=== PATIENT | female | born 1955 | race Caucasian/White ===

== ENCOUNTER → 2018-05-23 02:56 | Outpatient (CLI) | payer BC, SELFPAY ==
[2018-05-23 08:50] LABS: TSH (W/Ref FT4) 1.78 uIU/mL (0.358-3.74)
== END ==
PROVIDERS: PCP Nurse Practitioner Family; Visit Provider Nurse Practitioner Gerontology
DX: E03.9 Hypothyroidism, unspecified (principal)
CPT/HCPCS: 36415; 84443

== ENCOUNTER 2018-09-09 15:59 | Outpatient (REF) | payer BC, SELFPAY | END 2018-09-09 16:19 | LOC: LBN 15:59 | PROVIDERS: PCP Nurse Practitioner Family; Visit Provider Nurse Practitioner Family | DX: N39.0 Urinary tract infection, site not specified (principal) | CPT/HCPCS: 87077; 87086; 87186 ==

== ENCOUNTER 2019-01-17 13:34 | Emergency (ER) | payer OTHER, SELFPAY ==
[2019-01-17 13:38] VITALS: BP 118/57; PULSE 78; RESP 16; TEMP 36.7; O2SAT 97
--- NOTE | 2019-01-17 13:44 | ED.GENADUL_ITS ---
Discharge Plan Disposition Patient Disposition: HOME Condition: Stable Discharge Details Chief Complaint: AnimalBite Clinical Impression: Dog bite of right lower leg Primary Care Provider: Anjelica Bray ED Provider: Gianluca Nguyen Home Meds and New Rx's Prescriptions: New doxycycline hyclate 100 mg tablet 100 mg PO BID Qty: 28 RF: 0 No Action nitrofurantoin monohyd/m-cryst 100 mg capsule 100 mg PO Q12H Qty: 10 RF: 0 aspirin 81 MG tablet,chewable 81 mg PO DAILY RF: 0 levothyroxine 75 MCG tablet 75 mcg PO DAILY Qty: 90 RF: 4 Estring 2 mg (7.5 mcg /24 hour) ring 1 vag ring VG Q3 MONTHS Qty: 1 RF: 4 Discharge Instructions Instructions: Animal Bite (ED) Medical Decision Making Pt states she was riding a bike when a dog bit her right posterior thigh, denies falling or hitting her head. She has several puncture wounds to the right posterior thigh, don't require sutures at this time, has full rom of the leg sodoubt tendon injury and bleeding is controlled, nursing will clean and will prescribe doxy (pcn allergy). She is utd on tetanus and dog is utd on rabies per pt. Differential Diagnosis dog bite, laceration HPI General Mode of arrival: ambulatory . Date/Time Provider Initiated Documentation: 01/17/19 13:35 . Limitations to Documentation: no limitations . Information obtained by: patient . History of Present Illness 63 year old F presents to the emergency department with the chief complaint of dog bite right thigh, described as mild, and is localized to the right and lower extremity. Patient reports no radiation. Patient started experiencing this hour(s) (1) and it has been constant. No relieving factors improve symptom(s), No exacerbating factors reported . Patient notes no other symptoms.. Patient did receive the following treatments prior to arrival, none Related Data Home Medications Medication Instructions Recorded Confirmed aspirin 81 mg PO DAILY tab-cap 02/26/18 01/17/19 levothyroxine 75 mcg PO DAILY #90 tab-cap 05/24/18 01/17/19 estradiol 2 mg (7.5 mcg/24 hour) 1 vag ring VG Q3 MONTHS #1 each 09/06/18 01/17/19 vaginal ring nitrofurantoin 100 mg PO Q12H #10 cap 09/09/18 01/17/19 monohydrate/macrocrystals 100 mg capsule doxycycline hyclate 100 mg PO BID #28 tab 01/17/19 Previous Rx's Medication Instructions Recorded levothyroxine 75 mcg PO DAILY #90 tab-cap 05/24/18 estradiol 2 mg (7.5 mcg/24 hour) 1 vag ring VG Q3 MONTHS #1 each 09/06/18 vaginal ring nitrofurantoin 100 mg PO Q12H #10 cap 09/09/18 monohydrate/macrocrystals 100 mg capsule doxycycline hyclate 100 mg PO BID #28 tab 01/17/19 Allergies Allergy/AdvReac Type Severity Reaction Status Date / Time ampicillin Allergy Unknown Unverified 01/17/19 13:48 Carbapenems Allergy Unknown Unverified 01/17/19 13:48 Cephalosporins Allergy Unknown Unverified 01/17/19 13:48 Penicillins Allergy Unknown Unverified 01/17/19 13:48 sulbactam [Sulbactam] Allergy Unknown Unverified 01/17/19 13:48 BETALACTAMS Allergy Unknown Uncoded 01/17/19 13:48 Review of Systems Review of Systems All systems reviewed & are unremarkable except as noted in HPI and below Constitutional Denies chills, Denies fever(s) and Denies weakness ENT Denies change in voice Cardiovascular Denies chest pain and Denies dyspnea Respiratory Denies cough and Denies dyspnea Gastrointestinal Denies abdominal pain, Denies nausea and Denies vomiting Integumentary/Breasts Denies rash Neurologic Denies weakness PFSH Medical History Hypothyroidism (Chronic) Osteopenia (Chronic) Vitiligo (Chronic) Multinodular goiter (Resolved) H/O total thyroidectomy (Inactive ~08/2004) Malignant neoplasm of left breast (Inactive ~08/1991) Surgical History History of modified radical mastectomy of left breast (Inactive ~08/1991) Tonsillectomy Family History Mother Diabetes Heart disease Father Heart disease Neoplasm Stroke Brother Diabetes Brother No problems noted. Grandfather No problems noted. Grandfather No problems noted. Grandmother No problems noted. Grandmother Stroke Son Neoplasm Social History Do you feel safe in your relationship?: Yes Exam Const General: no acute distress Orientation: alert HENMT Head: normal to inspection Ears: external ears normal General nose exam: external nose normal Mouth: moist mucous membranes Eyes General: appearance normal, both eyes and all related structures Neck Neck: normal visual inspection Resp Effort & Inspection: normal respiratory effort and able to speak in complete sentences Cardio Rate: regular rate Skin General skin exam: no rashes or lesions noted Neuro General: alert and oriented x3 Extrem General: full ROM and normal capillary refill Psych Mental Status: mental status grossly normal
--- NOTE | 2019-01-17 13:55 | NUR.NOTE ---
Animal bite report faxed to [facility] health officer Cornelia Kaufman
== END 2019-01-17 14:05 | disposition home or self-care (01) ==
PROVIDERS: Emergency Provider Emergency Medicine; PCP Nurse Practitioner Family
DX: S81.851A Open bite, right lower leg, initial encounter (principal); W54.0XXA Bitten by dog, initial encounter
CPT/HCPCS: 99283

== ENCOUNTER 2019-03-13 07:14 | Outpatient (CLI) | payer OTHER, SELFPAY ==
[2019-03-13 08:17] LABS: Hemoglobin A1C 5.8 % (4.5-6.2)
[2019-03-13 12:31] LABS: Anion Gap 11.5 mmol/L (3-11); BUN 13 mg/dL (7-18); CO2 26.5 mmol/L (21.0-32.0); CREATININE 0.84 mg/dL (0.55-1.02); Calcium 9.1 mg/dL (8.5-10.1); Chloride 104 mmol/L (98-107); FREE T4 1.26 ng/dL (0.76-1.46); Glucose 96 mg/dL (70-100); Potassium 4.4 mmol/L (3.5-5.1); Sodium 142 mmol/L (136-145); TSH 3.64 uIU/mL (0.358-3.74)
[2019-03-13 12:52] LABS: Calculated LDL 127; Cholesterol 203 mg/dL (50-200); HDL Cholesterol 58 mg/dL (40-60); Triglyceride 94 mg/dL (30-150)
[2019-03-13 13:14] LABS: Vitamin D 25 Total 19.7 ng/ml (30-100)
== END 2019-03-13 07:34 ==
PROVIDERS: PCP Nurse Practitioner Family; Visit Provider Nurse Practitioner Family
DX: E03.9 Hypothyroidism, unspecified (principal); E78.5 Hyperlipidemia, unspecified; M85.80 Other specified disorders of bone density and structure, unspecified site
CPT/HCPCS: 36415; 80048; 80061; 82306; 83721; 83036; 84439; 84443

== ENCOUNTER 2019-08-11 10:19 | Day surgery (SDC) | payer OTHER, SELFPAY ==
--- NOTE | 2019-08-11 07:22 | W.COLOREPORT ---
Date of service: 08/11/19 Time of Service: 11:44 Colonoscopy Report Date of procedure: 08/11/19 Pre-op diagnosis general: Hx of colon polyps Post-op diagnosis procedure note: same (3 polyps and diverticulosis) Procedure: Colonoscopy with polypectomy Surgeon: Anne Marie Felton Anesthesia proc note operative: other (General/ ASA 2/Suyapa Vergara, ZAKIYA) Estimated blood loss (mL): 3 Pathology: other (Transverse polyps x3) Complications: None Disposition: same day Indications: Mrs. Templeton is a pleasant 64 year old female who was seen in the office for a colonosocpy. She had polyps in 2006 and no polyps in 2011. There is no family history of colon cancer. Risks, benefits and complications have been reviewed. Complications include but are not limited to bleeding, pain, perforation, missed small lesion/polyp, sore throat, aspiration and adverse reaction to the medications. Questions were entertained and answered to their satisfaction and they wished to proceed. No guarantees were given or implied. Prep: Miralax/Dulcolax Procedure Start Time: :44 Procedure End Time: 12:10 Retraction Time: 16 minutes Findings: 3 small sessile polyps in the transverse colon Moderate sigmoid diverticulosis Procedure Description: After informed consent was obtained the patient was taken to the procedure room and placed in a left decubitous position. Monitors were applied and a time out was done. The patients name, date of , procedure, allergies to medications and metal in their body was reviewed. The patient was then sedated. Once sedated and comfortable a rectal exam was done. External exam was normal. Internal exam revealed a normal sphincter tone and no palpable masses. The scope was then introduced and retro-flexed. No internal hemorrhoids, polyps or masses were identified on retro-flexion. The scope was then advanced to the cecum without difficulty. The TI and appendiceal orifice were identified. The prep was adequate. The scope was then slowly retracted over 16 minutes back into the rectum. Polyps were removed with cold forceps in the transverse colon. Moderate Diverticulosis was noted in the sigmoid colon. The scope was removed and the patient was woken up and taken back to Same day surgery in stable condition. The patient tolerated the procedure well and there were no immediate complications. Follow up: The patient should follow up in 3-5 years unless they develop changes in bowel habits or other new gastrointestinal complaints.
--- NOTE | 2019-08-11 07:24 | W.PM.DSUDISC ---
Discharge Plan Disposition Patient Disposition: HOME Condition: Good Discharge Details Reason For Visit: SCREENING,HX OF POLYPS Attending Provider: Anne Marie Felton Primary Care Provider: Anjelica Bray Home Meds and New Rx's Prescriptions: Continued Prevnar 13 (PF) 0.5 mL syringe 0.5 ml IM ONCE Qty: 0.5 RF: 0 aspirin 81 MG tablet,chewable 81 mg PO DAILY RF: 0 Estring 2 mg (7.5 mcg /24 hour) ring 1 vag ring VG Q3 MONTHS Qty: 1 RF: 4 levothyroxine 75 mcg tablet 75 mcg PO DAILY Qty: 90 RF: 4 Discontinued polyethylene glycol 3350 17 gram/dose powder 238 g PO ONCE Qty: 238 RF: 0 bisacodyl [Dulcolax (bisacodyl)] 5 mg tablet,delayed release (DR/EC) 5 mg PO ONCE Qty: 4 RF: 0 Discharge Instructions Instructions: Colonoscopy (DC), Diverticulosis (DC), Colorectal Polyps (DC) Additional Instructions: Findings: 3 small polyps diverticulosis Follow up: 3-5 years Please call if you develop: fevers >101.5 Nausea or Vomiting Abdominal pain that is not transient DAY SURGERY UNIT POST ENDOSCOPY INSTRUCTIONS 1. Because there will be medication in your system for the next 24 hours, you may feel a little sleepy. Your coordination will be affected. Therefore: a. Do not drive or operate dangerous equipment for 24 hours. b. Do not drink alcohol beverages for 24 hours (not even beer). c. Plan to go home and rest for the day. 2. Generally there are no restrictions on your activity after a day or so has gone by, but you may feel a bit fatigued for a few days. 3 After you arrive home you may have a light meal and return to a normal diet as you can tolerate it without feeling sick to your stomach. 4. After surgery, you may feel pain or discomfort. This should be only transient, but if it persists please contact your doctor. 5. If there are any questions regarding the findings of your procedure, please feel free to contact your doctor. 6. If you are unable to contact your doctor with a problem, contact the hospital at [phone]. 7. Continue all your regular medications unless directed otherwise. I understand the above instructions and have no questions. Signature of Patient or Responsible Adult Escort Date/Time Name of Responsible Adult Escort Signature of Nurse Date/Time Activity:: Activity as Tolerated Diet:: High Fiber diet Discharge Orders Discharge Orders: Discharge Order (Routine); Ordered 08/11/19 Ordered By: Anne Marie Felton DS: Diagnosis Discharge Diagnosis (1) S/P colonoscopy: Status: Acute (2) Diverticulosis: Status: Acute (3) Colorectal polyps: Status: Acute
[2019-08-11 10:41] VITALS: BP 103/71; PULSE 78; RESP 16; TEMP 36; O2SAT 97
[2019-08-11] MEDS: Lactated Ringers 1,000 ML 80 ML IV (10:53)
--- NOTE | 2019-08-11 12:00 | BOWEL_PTH ---
PATIENT: Ashley Templeton LOC: [facility] U#:[id number] AGE/SX: 64/F ROOM: RE08/11/[address]: Anne Marie Felton MD : 1955 BED: DIS: 08/11/2019 SPEC #: [id number] RECD: 08/11/19 13:12 STATUS: JUAN RESarah #: [id number] ANTHONY: 08/11/19 12:[address]: Anne Marie Felton DEPT: Surgical Specimen RECD BY: Lexie Pitts ENTERED: 08/11/19 13:12 SP TYPE: Bowel OTHR DR: NARESH Donnelly Tissues: 1 - BIOPSY BOWEL Procedures: GROSS AND MICRO LEVEL 4 Comments: [id number]
[2019-08-11 12:45] VITALS: BP 116/59; PULSE 69; RESP 16; TEMP 36.2; O2SAT 96
== END 2019-08-11 13:25 | disposition home or self-care (01) ==
PROVIDERS: PCP Nurse Practitioner Family; Visit Provider Surgery
PROC: 0DJD8ZZ Inspection of Lower Intestinal Tract, Via Natural or Artificial Opening Endoscopic (ICD-10-PCS; CPT 45378; principal; 2019-08-11 10:45)
DX: Z12.11 Encounter for screening for malignant neoplasm of colon (principal); Z86.010 Personal history of colon polyps; D12.3 Benign neoplasm of transverse colon; K57.30 Diverticulosis of large intestine without perforation or abscess without bleeding
CPT/HCPCS: 45380; 88305; J2405

== ENCOUNTER 2019-10-06 17:17 | Outpatient (REF) | payer OTHER, SELFPAY ==
--- NOTE | 2019-10-06 16:30 | PAPFT_PTH ---
PATIENT: Ashley Templeton LOC: [facility] U#:[id number] AGE/SX: 64/F ROOM: RE10/06/[address]: Christina Dalton MD : 1955 BED: DIS: 10/06/2019 SPEC #: [id number] RECD: 10/06/19 18:42 STATUS: JUAN RESarah #: [id number] ANTHONY: 10/06/19 16:[address]: Christina Ferrari DEPT: [facility] Cytology RECD BY: Lexie Pitts ENTERED: 10/06/19 18:44 SP TYPE: PAPFT OTHR DR: Anjelica Bray, CORRECTION OFFICER Tissues: 1 - CX/ENDOCX FOR PAP SMEARS Procedures: PAP THIN PREP/UVM Screening HPV DNA PROBE Comments: [id number] (CHLAMYDIA/GC)
[2019-10-07 15:45] LABS: Chlamydia Result Negative (Negative); GC Result Negative (Negative)
== END 2019-10-06 17:37 ==
LOC: LBN 17:17
PROVIDERS: PCP Nurse Practitioner Family; Visit Provider Internal Medicine
DX: R31.9 Hematuria, unspecified (principal); M54.9 Dorsalgia, unspecified; N89.8 Other specified noninflammatory disorders of vagina; Z11.3 Encounter for screening for infections with a predominantly sexual mode of transmission; Z12.4 Encounter for screening for malignant neoplasm of cervix
CPT/HCPCS: 87491; 87591; 88142; 87086; 87480; 87510; 87624; 87660

== ENCOUNTER 2019-10-09 02:28 | Outpatient (CLI) | payer OTHER, SELFPAY ==
--- NOTE | 2019-10-09 15:27 | DI.US_ITS ---
EXAM: US PELVIS TRANSVAGINAL CLINICAL HISTORY: uterine mass N85.2 HYPERTROPHY OF UTERUS TECHNIQUE: Ultrasound performed using standard protocol. COMPARISON: No exams were available for comparison FINDINGS: Pelvic ultrasound was performed transabdominally and transvaginally. Please see the accompanying lamar a sheet for measurements of the pelvic structures. There is incidental 2 cm in diameter simple left lower pole renal cyst. Otherwise the kidneys are unremarkable. There is a small quantity of free fluid in the endometrial cavity in the fundus. There is a cervical fluid collection measuring about 19 x 15 x 10 millimeters, this could represent lower uterine segmen t/cervical endometrial collection. Alternatively this may represent a large nabothian cyst. The ova rahul are unremarkable in appearance. Symmetrical vascular flow to the ovary is noted. No free fluid identified in the cul-de-sac. IMPRESSION: Fluid in endometrial cavity, abnormal in this age group. Correlation with hysteroscopy and/or endomet rial biopsy recommended.
== END 2019-10-09 02:48 ==
PROVIDERS: PCP Nurse Practitioner Family; Visit Provider Internal Medicine
DX: N85.2 Hypertrophy of uterus (principal); N28.1 Cyst of kidney, acquired; N85.8 Other specified noninflammatory disorders of uterus
CPT/HCPCS: 76830; 76856

== ENCOUNTER 2019-10-21 16:48 | Outpatient (REF) | payer OTHER, SELFPAY ==
--- NOTE | 2019-10-21 16:00 | ENDOMET_PTH ---
PATIENT: Ashley Templeton LOC: [facility] U#:[id number] AGE/SX: 64/F ROOM: RE10/21/[address]: Ivis Soliman : 1955 BED: DIS: 10/21/2019 SPEC #: [id number] RECD: 10/21/19 17:20 STATUS: JUAN RESarah #: [id number] ANTHONY: 10/21/19 16:[address]: Ivis Soliman DEPT: Surgical Specimen RECD BY: Lexie Pitts ENTERED: 10/21/19 17:20 SP TYPE: Endomet OTHR DR: NARESH Donnelly Tissues: 1 - ENDOMETRIUM BX/BHARATH Procedures: GROSS AND MICRO LEVEL 4 Comments: [id number]
== END 2019-10-21 17:08 ==
LOC: LBN 16:48
PROVIDERS: PCP Nurse Practitioner Family; Visit Provider Obstetrics & Gynecology Gynecology
DX: N85.8 Other specified noninflammatory disorders of uterus (principal); N84.0 Polyp of corpus uteri; R93.89 Abnormal findings on diagnostic imaging of other specified body structures
CPT/HCPCS: 88305

== ENCOUNTER 2020-03-05 18:17 | Outpatient (REF) | payer OTHER, SELFPAY ==
[2020-03-05 20:11] LABS: Bilirubin Negative (Negative); Blood Small (Negative); Clarity Clear (Clear); Glucose Negative (Negative); Ketones Negative (Negative); Leukocyte Esterase Small (Negative); Nitrite Positive (Negative); Urobilinogen 0.2 EU/dL (Up TO 0.2); pH 5.5 (5-8)
[2020-03-05 20:12] LABS: C & S Indicated? C&S Done As Ordered
[2020-03-05 20:21] LABS: Bacteria Many HPF (Negative); Casts Negative LPF (Negative); Crystals Negative HPF (Negative); Epithelial Cells Negative HPF (Negative); Mucus Negative (Negative); WBC >50 HPF (0-5)
== END 2020-03-05 18:37 ==
LOC: LBN 18:17
PROVIDERS: PCP Nurse Practitioner Family; Visit Provider Nurse Practitioner Family
DX: R35.0 Frequency of micturition (principal)
CPT/HCPCS: 87077; 81003; 81015; 87086; 87186

== ENCOUNTER 2020-03-11 02:24 | Outpatient (CLI) | payer OTHER, SELFPAY ==
[2020-03-11 08:03] LABS: Hemoglobin A1C 5.8 % (3.8-5.6)
[2020-03-11 08:47] LABS: Calculated LDL 138 mg/dL (<100); Cholesterol 208 mg/dL (<200); HDL Cholesterol 60 mg/dL (40-60); TSH 0.83 uIU/mL (0.36-3.74); Triglyceride 54 mg/dL (<150)
[2020-03-11 09:15] LABS: FREE T4 1.19 ng/dL (0.76-1.46)
== END 2020-03-11 02:44 ==
PROVIDERS: PCP Nurse Practitioner Family; Visit Provider Nurse Practitioner Family
DX: R73.03 Prediabetes (principal); E03.9 Hypothyroidism, unspecified
CPT/HCPCS: 36415; 80061; 83036; 84439; 84443

== ENCOUNTER 2020-12-03 12:45 | Outpatient (CLI) | payer OTHER, SELFPAY ==
[2020-12-04 16:56] LABS: COVID-19 RT-PCR UVMMC Result Negative (Negative)
== END 2020-12-03 12:46 | disposition home or self-care (01) ==
LOC: LBO 12:45
PROVIDERS: PCP Nurse Practitioner Family; Visit Provider Nurse Practitioner Family
DX: Z20.822 Contact with and (suspected) exposure to COVID-19 (principal)
CPT/HCPCS: U0003

== ENCOUNTER 2020-12-08 03:16 | Outpatient (CLI) | payer OTHER, SELFPAY ==
[2020-12-09 13:18] LABS: COVID-19 RT-PCR UVMMC Result Negative (Negative)
== END 2020-12-08 03:17 | disposition home or self-care (01) ==
LOC: LBO 03:16
PROVIDERS: PCP Nurse Practitioner Family; Visit Provider Nurse Practitioner Family
DX: Z20.822 Contact with and (suspected) exposure to COVID-19 (principal)
CPT/HCPCS: U0003

== ENCOUNTER 2021-01-11 03:11 | Outpatient (CLI) | payer OTHER, SELFPAY ==
[2021-01-12 12:23] LABS: COVID-19 RT-PCR UVMMC Result Negative (Negative)
== END 2021-01-11 03:12 | disposition home or self-care (01) ==
LOC: LBO 03:11
PROVIDERS: PCP Nurse Practitioner Family; Visit Provider Nurse Practitioner Family
DX: Z20.822 Contact with and (suspected) exposure to COVID-19 (principal)
CPT/HCPCS: U0003

== ENCOUNTER 2021-03-10 23:58 | Outpatient (REF) | payer OTHER, SELFPAY ==
[2021-03-10 21:14] LABS: Bilirubin Negative (Negative); Blood Moderate (Negative); Clarity Cloudy (Clear); Glucose Negative (Negative); Ketones Trace mg/dL (Negative); Leukocyte Esterase Small (Negative); Nitrite Negative (Negative); Specific Gravity >= 1.030 (1.005-1.025); Urobilinogen 0.2 EU/dL (Up TO 0.2); pH 5.5 (5-8)
[2021-03-10 21:25] LABS: C & S Indicated? C&S Done As Ordered; Crystals Many Amorphous HPF (Negative)
== END 2021-03-10 23:59 | disposition home or self-care (01) ==
LOC: LBN 23:58
PROVIDERS: PCP Nurse Practitioner Family; Visit Provider Nurse Practitioner Family
DX: R32 Unspecified urinary incontinence (principal); N39.0 Urinary tract infection, site not specified
CPT/HCPCS: 81003; 81015; 87086

== ENCOUNTER 2021-03-14 04:15 | Outpatient (CLI) | payer OTHER, SELFPAY ==
[2021-03-14 15:29] LABS: Anion Gap 7.4 mmol/L (3-11); BUN 11 mg/dL (7-18); CO2 29.6 mmol/L (21.0-32.0); CREATININE 0.9 mg/dL (0.55-1.02); Calcium 9.3 mg/dL (8.5-10.1); Chloride 105 mmol/L (98-107); FREE T4 1.14 ng/dL (0.76-1.46); Glucose 103 mg/dL (74-106); Potassium 4.3 mmol/L (3.5-5.1); Sodium 142 mmol/L (136-145); TSH 1.48 uIU/mL (0.36-3.74)
[2021-03-17 01:13] LABS: Vitamin D 25 Total 21.5 ng/mL (30-100)
== END 2021-03-14 04:16 | disposition home or self-care (01) ==
LOC: LBO 04:16
PROVIDERS: PCP Nurse Practitioner Family; Visit Provider Nurse Practitioner Family
DX: Z00.00 Encounter for general adult medical examination without abnormal findings (principal); E03.9 Hypothyroidism, unspecified; M85.9 Disorder of bone density and structure, unspecified
CPT/HCPCS: 36415; 80048; 82306; 84439; 84443

== ENCOUNTER 2021-10-02 15:09 | Emergency (ER) | payer BC, SELFPAY ==
[2021-10-02 15:22] VITALS: BP 120/68; PULSE 83; RESP 12; TEMP 36.8; O2SAT 99
--- NOTE | 2021-10-02 16:00 | DI.RAD_ITS ---
Exam(s) XR HAND RT COMPLETE XR WRIST RT COMPLETE EXAM: XR HAND RT COMPLETE CLINICAL HISTORY: s/p fall, r/o fx. TECHNIQUE: 2D digital imaging was performed. COMPARISON: CR,XR XR WRIST RT COMPLETE from 10/02/2021 CR,XR XR WRIST RT COMPLETE from 10/02/2021 FINDINGS: BONES: An acute fracture is present at the proximal 1st metacarpal. There is some impaction and angu lation. No visible extension to the articular surface. No additional fractures. Fixation plate dis rodney radius.. No bony destructive lesion is seen. JOINTS: No dislocation present. SOFT TISSUE: Normal. IMPRESSION: Fracture at the base of the 1st metacarpal. DATA REPOSITORY: RADIATION DOSE DELIVERED:
--- NOTE | 2021-10-02 16:42 | DI.VRAD_ITS ---
PROCEDURE INFORMATION: Exam: XR Right Wrist Exam date and time: 10/02/2021 4:13 PM Age: 66 years old Clinical indication: Other: Fall, R/O FX TECHNIQUE: Imaging protocol: XR Right wrist. Views: 3 or more views. COMPARISON: No relevant images were readily available for comparison purposes. FINDINGS: Bones/joints: Fixation hardware distal radius which appears intact without evidence of acute complication. Osteopenia. There is a mildly displaced/angulated fracture of the 1st metacarpal base. Soft tissues: Soft tissue swelling about site of bony injury. IMPRESSION: Acute fracture 1st metacarpal base. Dictated and Authenticated by: Luther Infante MD. Ordering:ANT Tay MD
--- NOTE | 2021-10-02 16:43 | DI.VRAD_ITS ---
PROCEDURE INFORMATION: Exam: XR Right Hand Exam date and time: 10/02/2021 4:13 PM Age: 66 years old Clinical indication: Other: Fall, R/O FX TECHNIQUE: Imaging protocol: XR Right hand. Views: 3 or more views. COMPARISON: CR XR WRIST RT COMPLETE 10/02/2021 4:20 PM FINDINGS: Bones/joints: Acute mildly displaced/angulated fracture of the 1st metacarpal base. Fixation hardware seen at the distal radius. Soft tissues: Soft tissue swelling about site of bony injury. IMPRESSION: Acute fracture 1st metacarpal base. Dictated and Authenticated by: Luther Infante MD. Ordering:ANT Tay MD
--- NOTE | 2021-10-02 16:55 | W.ED.GENAD ---
Discharge Plan Disposition Patient Disposition: HOME Condition: Stable Discharge Details Clinical Impression: Fracture of first metacarpal bone of right hand Primary Care Provider: Anjelica Bray ED Provider: Maggi Manuel Home Meds and New Rx's Prescriptions: Continued levothyroxine 75 mcg tablet 75 mcg PO DAILY Qty: 90 RF: 4 Discharge Instructions Instructions: Hand Fracture (ED) Additional Instructions: Rest, ice, and elevate the affected area as much as possible. Alternate tylenol and motrin as needed and directed for pain. Call the orthopedics office tomorrow morning to schedule a follow-up appointment for reevaluation. Return immediately to the emergency department if you develop any worsening or new concerning symptoms. Referrals: Roman Betancourt MD [ [facility] STAFF PHYSICIAN] - Discharge Data Discharge Date/Time-TO BE ENTERED AT DEPARTURE: 10/02/21 17:22 Discharge Physician: Maggi Manuel Medical Decision Making 66yo female presents with right thumb pain after trip and fall onto outstretched hand 4 days ago. She has ecchymosis and edema at the base of the right thumb extending to the dorsum of the right hand. No significant pain in her right wrist. No deformity noted. Neurovascularly intact. Patient referred for x-rays which noted a fracture at the base of the first metacarpal. X-rays reviewed with Dr. Betancourt who recommends ulnar gutter splint with web roll in between first and second webspace for thumb abduction. Splint placed and patient neurovascularly intact. Patient placed on orthopedic follow-up list. She declined medication for pain for home. Advised on importance of RICE. Usual and customary return precautions given prior to discharge. Medical Records Medical records reviewed: Yes I reviewed the patient's medical records. Imaging Data Radiologic Study: Radiologist's impression: XR Right Hand Exam date and time: 10/02/2021 4:13 PM Age: 66 years old Clinical indication: Other: Fall, R/O FX TECHNIQUE: Imaging protocol: XR Right hand. Views: 3 or more views. COMPARISON: CR XR WRIST RT COMPLETE 10/02/2021 4:20 PM FINDINGS: Bones/joints: Acute mildly displaced/angulated fracture of the 1st metacarpal base. Fixation hardware seen at the distal radius. Soft tissues: Soft tissue swelling about site of bony injury. IMPRESSION: Acute fracture 1st metacarpal base. XR Right Wrist Exam date and time: 10/02/2021 4:13 PM Age: 66 years old Clinical indication: Other: Fall, R/O FX TECHNIQUE: Imaging protocol: XR Right wrist. Views: 3 or more views. COMPARISON: No relevant images were readily available for comparison purposes. FINDINGS: Bones/joints: Fixation hardware distal radius which appears intact without evidence of acute complication. Osteopenia. There is a mildly displaced/angulated fracture of the 1st metacarpal base. Soft tissues: Soft tissue swelling about site of bony injury. IMPRESSION: Acute fracture 1st metacarpal base. Lab Data Lab results reviewed: Yes I reviewed the patient's lab results. HPI General Mode of arrival: ambulatory. Date/Time Provider Initiated Documentation: 10/02/21 15:34. Limitations to Documentation: no limitations. Information obtained by: patient. HPI Narrative: Patient is a 66-year-old female who presents with right thumb pain after a fall 4 days ago. 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 She states she also hit her head and her right ribs but denies any pain in these areas. She states the pain is mainly in the base of her right thumb and states the swelling and bruising has become worse. She does have a history of right wrist ORIF in 2006 status post fracture. Related Data Home Medications Medication Instructions Recorded Confirmed levothyroxine 75 mcg tablet 75 mcg PO DAILY #90 tab-cap 03/16/21 10/02/21 Previous Rx's Medication Instructions Recorded levothyroxine 75 mcg tablet 75 mcg PO DAILY #90 tab-cap 03/16/21 Allergies Allergy/AdvReac Type Severity Reaction Status Date / Time ampicillin Allergy Unknown Verified 10/02/21 15:25 Carbapenems Allergy Unknown Verified 10/02/21 15:25 Cephalosporins Allergy Unknown Verified 10/02/21 15:25 Penicillins Allergy Unknown Verified 10/02/21 15:25 sulbactam [Sulbactam] Allergy Unknown Verified 10/02/21 15:25 BETALACTAMS Allergy Unknown Uncoded 10/02/21 15:25 General Stated Complaint: Orthopedic ALBERTO: 4 Review of Systems All systems reviewed & are unremarkable except as noted in HPI and below Musculoskeletal Comments: R thumb pain PFSH All Active Problems (Updated 10/02/21 @ 17:16 by Maggi Manuel DO) Fracture of first metacarpal bone of right hand (Acute) Hypothyroidism (Chronic) Prediabetes (Chronic) Hyperlipidemia (Chronic) Osteopenia (Chronic) Dexa scan 10/2019 Vitamin D deficiency (Chronic) Tubular adenoma of colon (Chronic) Vaginal dryness, menopausal (Chronic) Rx with Estring. Vitiligo (Chronic) Sigmoid diverticulosis (Chronic) Medical History Hyperlipidemia Hypothyroidism Malignant neoplasm of left breast (~08/1991) Infiltrating ductal carcinoma s/p modified radical mastectomy and tamoxifen x 5yrs Multinodular goiter Osteopenia Dexa scan 10/2019 Postmenopausal bleeding 10/2019. Pelvic u/s ES: 4mm. EMBx: mucus. nl atrophic endometrium. Prediabetes Sigmoid diverticulosis Tubular adenoma of colon Vaginal dryness, menopausal Rx with Estring. Vitamin D deficiency Vitiligo Surgical History H/O total thyroidectomy (~08/2004) for multinodular goiter and Isatu's thyroiditis History of modified radical mastectomy of left breast (~08/1991) S/P colonoscopy (08/11/19) S/P ORIF (open reduction internal fixation) fracture (11/07/05) Of comminuted fracture of right distal radius and ulnar styloid S/P tonsillectomy and adenoidectomy Family History Mother , at 89 Heart disease Type 2 diabetes mellitus Father , at 92 Heart disease Stroke Skin cancer Brother Hypothyroidism Brother No problems noted. Maternal Grandfather No problems noted. Maternal Grandmother No problems noted. Paternal Grandfather No problems noted. Paternal Grandmother Stroke Social History Smoking/Tobacco Use Status: Never Second Hand Exposure: Yes Smoking risk assessment performed?: Yes Alcohol Intake: current Alcohol Intake frequency: a few times a month Alcohol type: hard liquor Drug use: Never Substance use type: does not use Counseling given: No Caregiver/Support person: No Household members: spouse Housing: house Communication Needs: None Do you need help understanding health information?: Rarely Pets and animals: Yes Pets and animals: cat(s) and dog(s) Sexually active: Yes Do you think of yourself as: straight/heterosexual Current gender identity: female What is your relationship status?: How often do you talk on the phone with friends or family?: three or more times per week How often do you get together with friends or relatives?: three or more times per week How often do you attend religion or hindu services?: 4 or more times per year Do you belong to any clubs or organized social groups?: no Panel score (0-1 are the most socially isolated patients): 3 What type of physical activity do you participate in: walking and bicycling Duration: 60-90 minutes/day Frequency: 5-6 times per week Tami/Episcopal: Yazidi Seatbelt use: always Helmet use: Yes Helmet use: always Drive intox or ride w/intox auto parts delivery driver: No Do you feel safe at home: Yes Do you feel safe in your relationship?: Yes Female Reproductive History Menstrual Menopause type: natural History History 0 Para Hx # Term Pregnancies Multiple births Hx # Pregnancies Ectopic pregnancies AB induced Hx Number of Living Children AB spontaneous Exam Const General: cooperative and no acute distress HENMT Head: normal to inspection Mouth: oral mucosae normal Eyes General: appearance normal, both eyes and all related structures Neck Neck: normal visual inspection Resp Effort & Inspection: normal respiratory effort and able to speak in complete sentences Cardio Rate: regular rate Skin General skin exam: no rashes or lesions noted Neuro General: patient alert, patient awake and patient oriented x3 Motor: muscle tone normal throughout Extrem Hand/finger images: 1. Tenderness, moderate edema and ecchymosis noted to the dorsal medial hand and extending onto the base of the right thumb extending down to wrist. Able to abduct/adduct thumb but with some pain. Other: Tenderness to palpation overlying the base of the right thumb. There is no significant tenderness or limitation of range of motion of the wrist. Right radial and ulnar pulses intact. No deformity. Psych Appearance: grossly normal Affect: normal affect Course Vital Signs Vital signs: Vital Signs Temperature 98.2 F 10/02/21 15: Pulse 83 10/02/21 15:22 Respiratory Rate 12 10/02/21 15:22 Blood Pressure 120/68 10/02/21 15:22 Pulse Oximetry 99 10/02/21 15:22 Temperature 98.2 F 10/02/21 15:22 Temperature Source Temporal Artery Scan 10/02/21 15:22 Pulse 83 10/02/21 15:22 Respiratory Rate 12 10/02/21 15:22 Respiratory Effort Non-Labored 10/02/21 15:24 Blood Pressure 120/68 10/02/21 15:22 Blood Pressure Position Sitting 10/02/21 15:22 Pulse Oximetry 99 10/02/21 15:22 Oxygen Delivery Method Room Air 10/02/21 15:22 Oxygen Flow Rate 0 10/02/21 15:22 Pain Level 4 10/02/21 15:26 Procedures Orthopedic Splinting/Casting Injury #1: Side: right Upper Extremity Injury Location: wrist and hand Upper Extremity Immobilizer: ulnar gutter
== END 2021-10-02 17:22 | disposition home or self-care (01) ==
PROVIDERS: Emergency Provider Physician Assistant; PCP Nurse Practitioner Family
DX: S62.291A Other fracture of first metacarpal bone, right hand, initial encounter for closed fracture (principal); W01.0XXA Fall on same level from slipping, tripping and stumbling without subsequent striking against object, initial encounter
CPT/HCPCS: 29125; 99284; 73110; 73130; 99283

== ENCOUNTER 2021-10-10 11:03 | Outpatient (CLI) | payer BC, SELFPAY ==
--- NOTE | 2021-10-10 08:58 | DI.RAD_ITS ---
Exam(s) XR WRIST RT COMPLETE EXAM: XR WRIST RT COMPLETE INDICATION: R thumb fx. COMPARISON: CR,XR XR WRIST RT COMPLETE from 10/02/2021 TECHNIQUE: 2D digital imaging was performed. FINDINGS: There has been no change in the alignment of the fracture at the base of the 1st metacarpal. No new abnormalities are seen. DATA REPOSITORY: RADIATION DOSE DELIVERED:
== END 2021-10-10 11:04 | disposition home or self-care (01) ==
LOC: DIORS 11:03
PROVIDERS: PCP Nurse Practitioner Family; Referring Provider Nurse Practitioner Family; Visit Provider Physician Assistant
DX: S62.234D Other nondisplaced fracture of base of first metacarpal bone, right hand, subsequent encounter for fracture with routine healing (principal); W19.XXXD Unspecified fall, subsequent encounter
CPT/HCPCS: 73110

== ENCOUNTER 2021-11-07 15:44 | Outpatient (CLI) | payer BC, SELFPAY ==
--- NOTE | 2021-11-07 15:00 | DI.RAD_ITS ---
Exam(s) XR WRIST RT COMPLETE EXAM: XR WRIST RT COMPLETE CLINICAL HISTORY: f/u fracture. TECHNIQUE: 2D digital imaging was performed. COMPARISON: CR XR WRIST RT COMPLETE from 10/10/2021 FINDINGS: Stable appearance of distal radius volar fixation. Healed fracture site hardware. Again noted is fracture site the proximal aspect thumb. Fracture line still visible at this level. IMPRESSION: DATA REPOSITORY: RADIATION DOSE DELIVERED:
== END 2021-11-07 15:45 | disposition home or self-care (01) ==
LOC: DIORS 15:44
PROVIDERS: PCP Nurse Practitioner Family; Referring Provider Nurse Practitioner Family; Visit Provider Student in an Organized Health Care Education/Training Program
DX: S62.234D Other nondisplaced fracture of base of first metacarpal bone, right hand, subsequent encounter for fracture with routine healing (principal); W01.0XXD Fall on same level from slipping, tripping and stumbling without subsequent striking against object, subsequent encounter
CPT/HCPCS: 73110

== ENCOUNTER 2021-12-05 15:16 | Outpatient (CLI) | payer BC, SELFPAY ==
--- NOTE | 2021-12-05 15:00 | DI.RAD_ITS ---
Exam(s) XR THUMB RT EXAM: XR THUMB RT INDICATION: f/u R thumb MC fracture. COMPARISON: CR,XR XR HAND RT COMPLETE from 10/02/2021 TECHNIQUE: 2D digital imaging was performed. Three views FINDINGS: There has been no change in the alignment of the fracture at the proximal 1st metacarpal. There is i ncreased callus formation around the fracture site. No new abnormalities. DATA REPOSITORY: RADIATION DOSE DELIVERED:
== END 2021-12-05 15:17 | disposition home or self-care (01) ==
LOC: DIORS 15:16
PROVIDERS: PCP Nurse Practitioner Family; Visit Provider Student in an Organized Health Care Education/Training Program
DX: S62.291D Other fracture of first metacarpal bone, right hand, subsequent encounter for fracture with routine healing (principal); W01.0XXD Fall on same level from slipping, tripping and stumbling without subsequent striking against object, subsequent encounter
CPT/HCPCS: 73140

== ENCOUNTER 2022-01-16 13:23 | Outpatient (CLI) | payer BC, SELFPAY ==
--- NOTE | 2022-01-16 10:00 | DI.RAD_ITS ---
Exam(s) XR THUMB RT EXAM: XR THUMB RT CLINICAL HISTORY: right thumb fracture. TECHNIQUE: 2D digital imaging was performed. Three views. COMPARISON: CR XR THUMB RT from 12/05/2021 FINDINGS: BONES: No change in alignment of fracture at the base of the 1st metacarpal. Continued healing.. No bony destructive lesion is seen. JOINTS: No dislocation present. Mild degenerative changes. SOFT TISSUE: Normal. IMPRESSION: Continued healing of fracture of 1st metacarpal. DATA REPOSITORY: RADIATION DOSE DELIVERED:
== END 2022-01-16 13:24 | disposition home or self-care (01) ==
LOC: DIORS 13:23
PROVIDERS: PCP Nurse Practitioner Family; Referring Provider Nurse Practitioner Family; Visit Provider Physician Assistant
DX: S62.291D Other fracture of first metacarpal bone, right hand, subsequent encounter for fracture with routine healing (principal); W01.0XXD Fall on same level from slipping, tripping and stumbling without subsequent striking against object, subsequent encounter
CPT/HCPCS: 73140

== ENCOUNTER 2022-02-16 18:15 | Outpatient (REF) | payer BC, SELFPAY ==
[2022-02-16 21:05] LABS: Bilirubin Negative (Negative); Blood Trace-intact (Negative); Clarity Cloudy (Clear); Glucose Negative (Negative); Ketones Negative (Negative); Leukocyte Esterase Negative (Negative); Nitrite Negative (Negative); Specific Gravity >= 1.030 (1.005-1.025); Urobilinogen 0.2 EU/dL (Up TO 0.2)
[2022-02-16 21:19] LABS: Bacteria Negative HPF (Negative); Epithelial Cells Negative HPF (Negative); RBC Negative HPF (0-2); WBC Negative HPF (0-5)
[2022-02-16 21:20] LABS: C & S Indicated? No; Casts Negative LPF (Negative); Crystals Many Amorphous HPF (Negative); Mucus Negative (Negative)
== END 2022-02-16 18:16 | disposition home or self-care (01) ==
LOC: LBN 18:15
PROVIDERS: PCP Nurse Practitioner Family; Visit Provider Nurse Practitioner Family
DX: R30.0 Dysuria (principal); R39.89 Other symptoms and signs involving the genitourinary system
CPT/HCPCS: 81003; 81015; 87480; 87510; 87660

== ENCOUNTER 2022-06-27 03:10 | Outpatient (CLI) | payer BC, SELFPAY ==
[2022-06-27 18:43] LABS: TSH (W/Ref FT4) 0.48 uIU/mL (0.36-3.74)
== END 2022-06-27 03:11 | disposition home or self-care (01) ==
LOC: LBO 03:10
PROVIDERS: PCP Nurse Practitioner Family; Visit Provider Family Medicine
DX: E03.9 Hypothyroidism, unspecified (principal)
CPT/HCPCS: 36415; 84443

== ENCOUNTER 2023-03-14 08:51 | Outpatient (CLI) | payer MEDICARE, SELFPAY ==
[2023-03-14 09:35] LABS: Bilirubin Negative (Negative); Blood Trace-lysed (Negative); Clarity Clear (Clear); Glucose Negative (Negative); Ketones Negative (Negative); Leukocyte Esterase Trace (Negative); Nitrite Negative (Negative); Urobilinogen 0.2 mg/dL (Up to 0.2); pH 5.5 (5-8)
[2023-03-14 09:40] LABS: Hemoglobin A1C 5.6 % (<5.7)
[2023-03-14 09:52] LABS: Anion Gap 5.4 mmol/L (3-11); BUN 12 mg/dL (7-18); CO2 30.6 mmol/L (21.0-32.0); CREATININE 0.9 mg/dL (0.55-1.02); Calculated LDL 120 mg/dL (<100); Chloride 105 mmol/L (98-107); Cholesterol 198 mg/dL (<200); Estimated GFR 69.64 (mL/min/1.73m2); Glucose 105 mg/dL (74-106); HDL Cholesterol 69 mg/dL (40-60); Potassium 4.1 mmol/L (3.5-5.1); Sodium 141 mmol/L (136-145); TSH (W/Ref FT4) 2.23 uIU/mL (0.36-3.74); Triglyceride 49 mg/dL (<150)
[2023-03-14 09:52] LABS: Bacteria Few HPF (Negative); C & S Indicated? Yes; Casts 0-2 Hyaline LPF (Negative); Crystals Negative HPF (Negative); Epithelial Cells Few HPF (Negative); Mucus Moderate (Negative)
[2023-03-14 10:42] LABS: Vitamin D 25 Total 23.6 ng/mL (30-100)
== END 2023-03-14 08:52 | disposition home or self-care (01) ==
LOC: LBO 08:52
PROVIDERS: PCP Nurse Practitioner Family; Visit Provider Nurse Practitioner Family
DX: E03.9 Hypothyroidism, unspecified (principal); R73.03 Prediabetes; E55.9 Vitamin D deficiency, unspecified; M54.9 Dorsalgia, unspecified
CPT/HCPCS: 36415; 80048; 80061; 82306; 81003; 81015; 83036; 84443; 87086

== ENCOUNTER → 2023-05-08 02:02 | Outpatient (CLI) | payer MEDICARE, SELFPAY ==
--- NOTE | 2023-05-08 07:45 | DI.DEXA_ITS ---
Exam(s) XR DEXA BONE DENSITY W/WO SVETLANA EXAM: XR DEXA BONE DENSITY W/WO SVETLANA CLINICAL HISTORY: Osteopenia,screening for osteoporosis in postmenopausal woman,z78.0 TECHNIQUE: COMPARISON: Comparison is made with prior examinations. FINDINGS: Lateral Spine Image: Unremarkable. No compression deformities identified. Left hip: Total T-Score: -1.9. This is unchanged compared to the prior examination. Total Z-Score: -0.5 T- and Z-scores: Findings are consistent with osteopenia. There is osteoporosis in the femoral neck with a T-score of -2.5. Lumbar Spine: Total T-Score: -1.1. This compares to -1.4 on the prior examination. Total Z-Score: 0.9 T- and Z-scores: Findings are consistent with osteopenia. IMPRESSION: Osteoporosis in the femoral neck.
== END ==
PROVIDERS: PCP Nurse Practitioner Family; Visit Provider Nurse Practitioner Family
DX: Z78.0 Asymptomatic menopausal state (principal); Z13.820 Encounter for screening for osteoporosis; M81.0 Age-related osteoporosis without current pathological fracture
CPT/HCPCS: 77080

== ENCOUNTER 2023-10-12 15:44 | Outpatient (REF) | payer MEDICARE, SELFPAY | END 2023-10-12 15:45 | disposition home or self-care (01) | LOC: LBN 15:44 | PROVIDERS: PCP Nurse Practitioner Family; Visit Provider Nurse Practitioner Family | DX: N89.8 Other specified noninflammatory disorders of vagina (principal) | CPT/HCPCS: 87480; 87510; 87660 ==

== ENCOUNTER 2024-01-28 15:45 | Outpatient (REF) | payer MEDICARE, SELFPAY ==
[2024-01-28 21:15] LABS: Bilirubin Negative (Negative); Blood Small (Negative); Clarity Clear (Clear); Glucose Negative (Negative); Ketones Negative (Negative); Leukocyte Esterase Negative (Negative); Nitrite Negative (Negative); Specific Gravity 1.025 (1.005-1.025); Urobilinogen 0.2 mg/dL (Up to 0.2); pH 5.5 (5-8)
[2024-01-28 21:26] LABS: Bacteria Negative HPF (Negative); C & S Indicated? No; Casts Negative LPF (Negative); Crystals Negative HPF (Negative); Epithelial Cells Rare HPF (Negative); Mucus Negative (Negative); Other Cells Rare Transitional (Negative); WBC Negative HPF (0-5)
== END 2024-01-28 15:46 | disposition home or self-care (01) ==
LOC: LBN 15:45
PROVIDERS: PCP Nurse Practitioner Family; Visit Provider Nurse Practitioner Family
DX: R30.0 Dysuria (principal)
CPT/HCPCS: 81003; 81015

== ENCOUNTER 2024-03-20 13:24 | Outpatient (CLI) | payer MEDICARE, SELFPAY ==
[2024-03-20 11:55] LABS: Anion Gap 5.7 mmol/L (3-11); BUN 12 mg/dL (7-18); CO2 30.3 mmol/L (21.0-32.0); CREATININE 0.9 mg/dL (0.55-1.02); Calcium 9.1 mg/dL (8.5-10.1); Chloride 105 mmol/L (98-107); Glucose 112 mg/dL (74-106); Potassium 4.2 mmol/L (3.5-5.1); Sodium 141 mmol/L (136-145); TSH (W/Ref FT4) 1.77 uIU/mL (0.36-3.74)
[2024-03-21 09:18] LABS: Hepatitis C Ab w Rflx HCV PCR Negative (Negative)
== END 2024-03-20 13:25 | disposition home or self-care (01) ==
LOC: LBO 13:25
PROVIDERS: PCP Nurse Practitioner Family; Visit Provider Nurse Practitioner Family
DX: E03.9 Hypothyroidism, unspecified (principal); Z00.00 Encounter for general adult medical examination without abnormal findings; R35.0 Frequency of micturition; M85.80 Other specified disorders of bone density and structure, unspecified site; B96.89 Other specified bacterial agents as the cause of diseases classified elsewhere
CPT/HCPCS: 36415; 80048; 82306; 86803; 84443; 87086

== ENCOUNTER → 2024-08-14 15:26 | Outpatient (BNVA) | payer MEDICARE, SELFPAY | PROVIDERS: PCP Nurse Practitioner Family; Referring Provider Nurse Practitioner Family; Visit Provider Physical Therapy Assistant | DX: Z12.11 Encounter for screening for malignant neoplasm of colon (principal); Z86.0100 Personal history of colon polyps, unspecified; R73.03 Prediabetes ==

== ENCOUNTER 2024-08-27 00:41 | Outpatient (CLI) | payer MEDICARE, SELFPAY ==
--- NOTE | 2024-08-27 07:15 | DI.MAMMO_ITS ---
Exam(s) MG MAMMO DIAGNOSTIC UNI US BREAST RT LIMITED EXAM: MG MAMMO DIAGNOSTIC UNI and U/S breast RT limited CLINICAL HISTORY: Right breast pain, N64.4, mastodynia. TECHNIQUE: Craniocaudal and mediolateral oblique Full Field Digital Mammography views of the right b reast with Computer Aided Diagnosis followed by Tomosynthesis and right breast ultrasound. COMPARISON: Comparison is made with prior examinations. FINDINGS: Mammography/Tomosynthesis: The patient is status post left mastectomy. Masses/Architectural Distortion: None seen. Microcalcifictions: No suspicious pleomorphic-type are seen. Skin Thickening/Nipple Retraction: None. Limited right breast US: Echotexture: Normal appearance of the glandular tissue. Shadowing: No suspicious foci. Cyst: None. Solid lesions: None seen. Ductal dilation: None. IMPRESSION: 1. No evidence of malignancy is noted. 2. Unless there is more urgent need, follow-up screening mammography is recommended, as per [employer] guidelines. 3. The findings were discussed with the patient on the date of the examination. BI-RADS Category 1 - Negative Breast Density - Category B - Scattered areas of fibroglandular density Breast density Category C or D implies that the patient has dense breast tissue. Dense breast tissue can make it harder to find cancer on a mammogram. Dense breast tissue is also associated with an incr eased risk of breast cancer. This information about the result of the mammogram report was provided to the patient to raise their awareness. Use this report when you speak with the patient about their risks for breast cancer, which includes their family history. At that time, you may recommend additional screening tests (Ultrasoun d or MRI) as these tests may add significant information. A negative radiographic report should not delay biopsy if a dominant or clinically suspicious mass is present. Up to ten percent of cancers are not identified on mammography. A negative report may reinforce clinical impression. Adenosis and dense breasts may obscure an underlying neoplasm. False positive reports average 6 to 10%. Patient will receive a letter notifying them of these results.
== END 2024-08-27 01:01 ==
LOC: DI 00:41
PROVIDERS: PCP Nurse Practitioner Family; Visit Provider Nurse Practitioner Family
DX: N64.4 Mastodynia (principal); Z12.31 Encounter for screening mammogram for malignant neoplasm of breast
CPT/HCPCS: 76642; 77061; 77065; G0279

== ENCOUNTER 2024-09-19 06:16 | Day surgery (SDC) | payer MEDICARE, SELFPAY ==
--- NOTE | 2024-09-19 00:07 | W.PM.HP.N ---
Date of service: 09/19/24 Time of Service: 07:44 Assessment and Plan Assessment and plan (1) Hyperlipidemia: Status: Chronic (2) Prediabetes: Status: Chronic (3) Hypothyroidism: Status: Chronic (4) Osteopenia: Status: Chronic (5) History of left breast cancer: Status: Chronic (6) Multinodular goiter: (7) Tubular adenoma of colon: Assessment and plan: Plan: Colonoscopy w/ general & natural airway. Informed consent is obtained for the procedural (explained in simple layman's terms that?the pt and/or family could understand) explaining risks vs benefits and alternatives to the procedure and consequences if we do not do the procedure and need/rational for the procedure. Risks include but are not limited to: bleeding, infection, perforation of colon.? This would necessitate emergency surgery to repair the damage w/ possible ostomy; and other associated complications w/ the required surgery. ? Also complications of anesthesia including aspiration, PR/CVA/, inability to complete the procedure. I discussed with the?patient would they could expect during the procedure, post procedure and recovery time and risks.? The patient understands that they need to have a ride home after the procedure.? Generally Colonoscopy does not require antibiotics prophylaxis, This document was created with voice activated software and may contain errors. 20 mins spent in direct pt care and 15 in non face to face time (8) Malignant neoplasm of left breast: History of Present Illness Narrative: Patient is here today for colonoscopy for adenomatous polyps..??? They completed a bowel prep with just a clear yellow residual effluent.? They not having any chest pain or shortness of breath, currently.? They are not experiencing any fever or chills.? They deny any productive cough or upper respiratory tract infection signs or symptoms.? They are not having abdominal pain, or nausea and vomiting.? They have not had any changes in medications, past medical history or past surgical history since previously being seen in the office. They have not had any accidents or have been in the ER since the clinic pre-operative evaluation. ??I reviewed the procedure with the patient today, including risks and benefits of the procedure, and what they could expect at home for recovery.? All questions are answered to the patient?s satisfaction today, and they are stable to proceed with the proposed procedure. he patient is here for Colonoscopy pre-op. Her last screening was in 2019, which was remarkable for tubular adenoma x 3. She denies having any family history of colon cancer. She has not had any bowel habit changes. -Discussed colonoscopy bowel prep as well as the procedure. Discussed possible complications of the procedure to include bleeding, pain, perforation, missed small lesion/polyp, sore throat, aspiration and adverse reaction to the medications. Questions were answered to patient?s satisfaction. No guarantees were implied or given. Sent in an order for ondansetron to be used PRN for any nausea and vomiting. Also discussed that she can prolong the duration of drinking the miralax if necessary by starting it earlier in the day. Anesthesia: general (without airway) Previous surgical intolerances: None Previous surgical complications: None Pulmonary risk factors: None PFT's: None Planned procedure: Yes Sleep apnea risks: No Can climb one flight of stairs (12-13 steps) in less than 30 seconds without stopping and without symptoms: Yes The surgery proposed for this patient is: Low risk Active cardiac conditions: None ECHO: None Stress Test: None Active risk factors: None ASA (acetylsalicylic acid):No Beta blockers: No Anti-coagulation: N/A Medications to be held: All vitamins and supplements x 5 days prior. 69 y/o female with history of breast cancer, prediabetes, HLD, hypothyroidism and vitiligo presents for colonoscopy screening pre-op. Her last screening was in 2019, which was remarkable for tubular adenoma x 3. She states she experienced a lot of nausea and vomiting while completing her bowel prep last time. She denies a family history of colon cancer. She denies any changes in bowel habits including bloody or black tarry stools, abdominal pain, diarrhea or constipation. Of note she was given an ointment to use PRN from her PCP for anal itching. Which has helped. She denies constitutional symptoms. She denies chest pain, palpitations, dyspnea or dyspnea with exertion. She denies prior history or family history of adverse reactions or complications with anesthesia. The patient denies any history of stroke, PR, seizures, bleeding or clotting disorders. She has metal implanted in her right wrist. Review of Systems All systems reviewed & are unremarkable except as noted in HPI and below PFSH All Active Problems Osteoporosis (Chronic) History of left breast cancer (Chronic ~08/1991) Infiltrating ductal carcinoma s/p modified radical mastectomy and tamoxifen x 5yrs Hypothyroidism (Chronic) Prediabetes (Chronic) Hyperlipidemia (Chronic) Osteopenia (Chronic) Dexa scan 10/2019 Vitamin D deficiency (Chronic) Genitourinary syndrome of menopause (Chronic) Mixed urge and stress incontinence (Chronic) Sigmoid diverticulosis (Chronic) Vitiligo (Chronic) Medical History Tubular adenoma of colon On 2019 colonoscopy Postmenopausal bleeding 10/2019. Pelvic u/s ES: 4mm. EMBx: mucus. nl atrophic endometrium. Multinodular goiter Malignant neoplasm of left breast (~08/1991) Infiltrating ductal carcinoma s/p modified radical mastectomy and tamoxifen x 5yrs Surgical History S/P tonsillectomy and adenoidectomy S/P colonoscopy (08/11/19) S/P ORIF (open reduction internal fixation) fracture (11/07/05) Of comminuted fracture of right distal radius and ulnar styloid H/O total thyroidectomy (~08/2004) for multinodular goiter and Isatu's thyroiditis History of modified radical mastectomy of left breast (~08/1991) Family History Mother , at 89 Heart disease Type 2 diabetes mellitus Father , at 92 Heart disease Stroke Skin cancer Brother Hypothyroidism Brother No problems noted. Maternal Grandfather No problems noted. Maternal Grandmother No problems noted. Paternal Grandfather No problems noted. Paternal Grandmother Stroke Social History Smoking/Tobacco Use Status: Never Second Hand Exposure: Yes Smoking risk assessment performed?: Yes Alcohol Intake: current Alcohol Intake frequency: a few times a month Alcohol type: hard liquor Drug use: Never Substance use type: does not use Counseling given: No Details: alcohol: unknown Caregiver/Support person: No Household members: spouse Housing: house Communication Needs: None Do you need help understanding health information?: Never Pets and animals: Yes Pets and animals: cat(s) and dog(s) Sexually active: Yes Do you think of yourself as: straight/heterosexual Current gender identity: female What is your relationship status?: How often do you talk on the phone with friends or family?: three or more times per week How often do you get together with friends or relatives?: three or more times per week How often do you attend restorationist or orthodox services?: 4 or more times per year Do you belong to any clubs or organized social groups?: no Panel score (0-1 are the most socially isolated patients): 3 What type of physical activity do you participate in: walking and bicycling Duration: 60-90 minutes/day Frequency: 5-6 times per week Tami/Druze: Hinduism Special tami needs: No Seatbelt use: always Helmet use: Yes Helmet use: always Drive intox or ride w/intox 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 Do you feel safe at home: Yes Do you feel safe in your relationship?: Yes Additional Social history: [facility] Female Reproductive History Menstrual Menopause type: natural History History 0 Para Hx # Term Pregnancies Multiple births Hx # Pregnancies Ectopic pregnancies AB induced Hx Number of Living Children AB spontaneous Meds Allergies and Home Medications Allergies Allergy/AdvReac Type Severity Reaction Status Date / Time ampicillin Allergy Unknown Skin Rash Verified 09/19/24 06:37 Carbapenems Allergy Unknown Other (See Verified 09/19/24 06:37 Comment) Cephalosporins Allergy Unknown Other (See Verified 09/19/24 06:37 Comment) Penicillins Allergy Unknown Skin Rash Verified 09/19/24 06:37 sulbactam (Sulbactam) Allergy Unknown Other (See Verified 09/19/24 06:37 Comment) BETALACTAMS Allergy Unknown Skin Rash Uncoded 09/19/24 06:37 Home Medications ?Medication ?Instructions ?Recorded ?Confirmed ?Type levothyroxine 75 mcg tablet 75 mcg PO DAILY #90 tabs 11/22/23 09/19/24 Rx cholecalciferol (vitamin D3) 50 2,000 unit PO DAILY #90 tabs 03/24/24 09/19/24 Rx mcg (2,000 unit) tablet alendronate 70 mg tablet (Fosamax) 70 mg PO QWEEK #15 tabs 05/21/24 09/19/24 Rx bisacodyl 5 mg tablet,delayed 5 mg PO ONCE #4 tabs 08/14/24 09/19/24 Rx release (Dulcolax (bisacodyl)) polyethylene glycol 3350 17 17 g PO ONCE #238 grams 08/14/24 09/19/24 Rx gram/dose oral powder estradiol 0.01% (0.1 mg/gram) vaginal 09/19/24 History vaginal cream ondansetron 8 mg disintegrating mg 09/19/24 History tablet Exam Narrative Exam Narrative: PHYSICAL EXAM GENERAL APPEARANCE: Alert, healthy appearance, oriented, x 3,? in no acute distress HYDRATION: Well hydrated HEAD, EYES, EARS, NECK, THROAT: Head is normocephalic, pupils equal, round, reactive to light and accommodation, ocular movement intact, sclera clear and no jaundice. ?Dentition intact. LUNGS: normal respiration/normal chest excursion. ?Clear to auscultation bilaterally. ?No wheeze. ?HEART: Regular rate and rhythm. no murmurs BDOMEN: soft and non-tender to palpation.? Normal bowel sounds.? Time Spent Time spent with Patient: <40 minutes Time was spent: preparing to see the patient(eg.review tests), obtaining and/or reviewing separately otained hiistory, ordering medications,tests, procedures, referring, communicating with other health acute care surgeon, indepentently interpreting results, counseling the patient, care coordination and other
[2024-09-19 06:34] VITALS: BP 109/66; PULSE 80; RESP 16; TEMP 36.6; O2SAT 98
[2024-09-19] MEDS: Normal Saline 500 ML 30 ML IV (06:55)
--- NOTE | 2024-09-19 07:19 | W.ANESPRE ---
General Info Date of Service Date Performed: 09/19/24 Height: 5 ft 6 in Weight: 64.6 kg Body Mass Index (BMI): 22.9 Surgical Procedure: Operation Date: 09/19/24 07:35 Proposed Procedure Side Surgeon p Colonoscopy Charlotte Lopez, Actual Procedure Side Surgeon p Colonoscopy Not Applicable Charlotte Lopez, Meds Allergies and Home Medications Allergies Allergy/AdvReac Type Severity Reaction Status Date / Time ampicillin Allergy Unknown Skin Rash Verified 09/19/24 06:37 Carbapenems Allergy Unknown Other (See Verified 09/19/24 06:37 Comment) Cephalosporins Allergy Unknown Other (See Verified 09/19/24 06:37 Comment) Penicillins Allergy Unknown Skin Rash Verified 09/19/24 06:37 sulbactam (Sulbactam) Allergy Unknown Other (See Verified 09/19/24 06:37 Comment) BETALACTAMS Allergy Unknown Skin Rash Uncoded 09/19/24 06:37 Home Medication ?Medication ?Instructions ?Recorded levothyroxine 75 mcg tablet 75 mcg PO DAILY #90 tabs 11/22/23 cholecalciferol (vitamin D3) 50 2,000 unit PO DAILY #90 tabs 03/24/24 mcg (2,000 unit) tablet alendronate 70 mg tablet (Fosamax) 70 mg PO QWEEK #15 tabs 05/21/24 bisacodyl 5 mg tablet,delayed 5 mg PO ONCE #4 tabs 08/14/24 release (Dulcolax (bisacodyl)) polyethylene glycol 3350 17 17 g PO ONCE #238 grams 08/14/24 gram/dose oral powder estradiol 0.01% (0.1 mg/gram) vaginal 09/19/24 vaginal cream ondansetron 8 mg disintegrating mg 09/19/24 tablet Current Visit Medications: Current Medications Generic Name Dose Route Start Last Admin Trade Name Freq PRN Reason Stop Dose Admin Hyoscyamine Sulfate 0.125 mg 09/19/24 11:56 Hyoscyamine 0.125 Mg Sl/Oral/Chew SL 10/19/24 11:55 DIRECTED PRN Sodium Chloride 500 mls @ 30 mls/hr 09/19/24 06:25 09/19/24 06:55 Saline 500ml Bag IV 10/19/24 06:24 30 mls/hr INFUSION UMESH Administration IV Miscellaneous Supplies 1 each 09/19/24 06:00 Iv Access IV 10/18/24 23:59 DIRECTED UMESH Ondansetron HCl 4 mg 09/19/24 11:56 Ondansetron 4 Mg/2 Ml Vial IVP 10/19/24 11:55 Q4H PRN PRN Nausea / Vomiting Sodium Chloride 0 ml 09/19/24 06:00 Normal Saline Flush 10 Ml Syr IV 10/18/24 23:59 PRN PRN Sodium Chloride 0 ml 09/19/24 06:00 Normal Saline 10 Ml Vial IJ 10/18/24 23:59 DIRECTED PRN Sterile Water 0 ml 09/19/24 06:00 Water,Injection,Sterile 10 Ml Vial IJ 10/18/24 23:59 DIRECTED PRN PFSH Active Problems Active Problems: Problem Status Onset Code Osteoporosis Chronic M81.0 History of left breast cancer Chronic ~08/1991 Z85.3 Hypothyroidism Chronic E03.9 Prediabetes Chronic R73.03 Hyperlipidemia Chronic E78.5 Osteopenia Chronic M85.80 Vitamin D deficiency Chronic E55.9 Genitourinary syndrome of menopause Chronic N95.8 Mixed urge and stress incontinence Chronic N39.46 Sigmoid diverticulosis Chronic K57.30 Vitiligo Chronic L80 Medical History Medical History Tubular adenoma of colon On 2018 colonoscopy Postmenopausal bleeding 10/2019. Pelvic u/s ES: 4mm. EMBx: mucus. nl atrophic endometrium. Multinodular goiter Malignant neoplasm of left breast (~08/1991) Infiltrating ductal carcinoma s/p modified radical mastectomy and tamoxifen x 5yrs Medical History Comments:: pt. reports being emotional after anesthesia Surgical History Surgical History S/P tonsillectomy and adenoidectomy S/P colonoscopy (08/11/19) S/P ORIF (open reduction internal fixation) fracture (11/07/05) Of comminuted fracture of right distal radius and ulnar styloid H/O total thyroidectomy (~08/2004) for multinodular goiter and Isatu's thyroiditis History of modified radical mastectomy of left breast (~08/1991) Tobacco Smoking/Tobacco Use Status: Never Passive smoking exposure: No Second hand exposure: Yes Alcohol Alcohol Intake: current Alcohol intake frequency: a few times a month Alcohol type: hard liquor Substance Use Substance use: Never Substance use type: does not use Details: alcohol: unknown Prental History History 0 Para Hx # Term Pregnancies Multiple births Hx # Pregnancies Ectopic pregnancies AB induced Hx Number of Living Children AB spontaneous Vital Signs and Lab Results Vital Signs Most Recent Vital Signs in EMR: Most Recent Vital Signs Temp Pulse Resp BP Pulse Ox 36.6 C 80 16 109/66 98 09/19/24 06:34 09/19/24 06:34 09/19/24 06:34 09/19/24 06:34 09/19/24 06:34 Lab Results Blood Type / Crossmatch: No Data to Display Complete Blood Count: No Data to Display Complete Metabolic Panel: No Data to Display Liver Function Panel: No Data to Display Coagulation Panel: No Data to Display Cardiac Panel: No Data to Display Arterial Blood Gas: No Data to Display Venous Blood Gas: No Data to Display Pancreas Panel: No Data to Display Thyroid Panel: No Data to Display Infectious Disease: No Data to Display Blood Cultures: No Data to Display Toxicology Panel: No Data to Display Anesthesia Assessment and Plan Anesthesia History Personal History: No History of Anesthesia Complications Family History: No Family History of Anesthesia Complications Exercise Tolerance Exercise Tolerance: Metabolic Equivalents>4 Pertinent Negatives Pertinent Negatives: No Symptoms of GERD, No Major Cardiovascular Symptoms or Complaints and No Major Pulmonary Symptoms or Complaints Cardiac & Pulmonary Exam Cardiac Exam: Normal S1/S2 Heart Sounds Pulmonary Exam: Clear Bilateral Breath Sounds Implantable Cardiac Device Does patient have a Pacemaker or an ICD?: No Airway Exam Known Difficult Airway: No Mallampati Class: 3 Mouth Opening: Normal (> 3cm) Thyromental Distance: Greater than 3 cm Neck Range of Motion: Full ROM Neck Circumference: Normal Teeth Condition: Normal Dentition ASA Classification ASA Score: ASA 2 Emergency Case?: No NPO Status NPO Status: NPO Clears >2 hours, Solids >8 hours Anesthesia Plan Resuscitation Status: Full Code Anesthesia Technique: General Anesthesia Airway Planned: Natural Airway Monitors Used: Standard Monitors
[2024-09-19 07:29] VITALS: BMI 22.9
[2024-09-19 08:30] VITALS: BP 104/57; PULSE 94; RESP 16; TEMP 36.3; O2SAT 99
--- NOTE | 2024-09-19 08:52 | PDOC.DSDIS_ITS ---
Date of service: 09/19/24 Discharge Plan Disposition Patient Disposition: Home Condition: Good Discharge Details Reason For Visit: Colon scope Attending Provider: Charlotte Lopez Primary Care Provider: Anjelica Bray Home Meds and New Rx's Prescriptions: Continued alendronate [Fosamax] 70 mg tablet 70 mg PO QWEEK Qty: 15 3RF levothyroxine 75 mcg tablet 75 mcg PO DAILY Qty: 90 3RF cholecalciferol (vitamin D3) 50 mcg (2,000 unit) tablet 2,000 unit PO DAILY Qty: 90 3RF ondansetron 8 mg tablet,disintegrating Patient Comments: DISSOLVE ONE TABLET ON THE TONGUE EVERY 8 HOURS NEEDED FOR NAUSEA AND VOMITING FOR 1 DAY estradiol 0.01 % (0.1 mg/gram) cream VAGINAL Patient Comments: APPLY 1 GRAM VAGINALLY ONCE DAILY FOR TWO WEEKS, THEN APPLY ONE GRAM VAGINALLY 2 TIMES PER WEEK. Discontinued bisacodyl [Dulcolax (bisacodyl)] 5 mg tablet,delayed release (DR/EC) 5 mg PO ONCE Qty: 4 0RF Rx Instructions: Take per colonoscopy instructions provided by ordering providers office polyethylene glycol 3350 17 gram/dose powder 17 g PO ONCE Qty: 238 0RF Rx Instructions: Take per colonoscopy instructions provided by ordering providers office Discharge Instructions Additional Instructions: [facility] Colonoscopy Post- Op Instructions Instructions for Everyone who is given Anesth esia: For your safety, please do the following for the next twenty-four (24) hours: *Do Not operate a motor vehicle (car, truck, motorcycle, etc.) *Do Not drink alcoholic beverages or use any recreational drugs for the first 24 hours or while taking pain medications. The medications in your body may have a reaction that can be dangerous. *Do Not make any important decisions or sign any important papers. Findings: Diverticula No polyps Follow up: No further repeat screening colonoscopy is advised. Of course, you should continue to have a yearly physical exam including a rectal exam. If you should ever notice any pain or difficulty having a bowel movement, blood in the stool, unexplained weight loss, or change in your bowel habits, please contact your health provider 1. No lifting over 20 pounds or strenuous activity for the first 24 hours after your procedure. After 24 hours there are no restrictions on your activity but you may feel fatigued for a few days. 2. After you arrive home you may have a light meal and return to your normal diet as you can tolerate it without feeling sick to your stomach. 3. You may have a bloated, gaseous feeling in your belly (abdomen) after a colonoscopy. Passing gas and belching will help. Walking or lying down on your left side with your knees flexed may relieve the discomfort. Call the office at [phone] (Office) or [phone] (Hospital) right away if you notice any of the following: a.Vomiting of blood or ?coffee ground stools?. b.Rectal bleeding 1Tbsp, blood clots or continuous bleeding. c.Severe belly (abdominal) pain. d.A hard distended belly (abdomen) and an inability to pass gas. 4. Please don?t expect to have a normal BM (bowel movement) for 2-3 days after your procedure. 5. If there are questions regarding the findings of your procedure, please contact your doctor 6. If you are unable to contact your doctor with a problem, contact the hospital at [phone]. 7. Continue all your regular medications unless directed otherwise. I understand the above instructions and have no questions. Signature of Patient or Adult Escort Name of Responsible Adult Escort Signature of Nurse Date/Time Stand Alone Forms: Lisa Hill ([facility]) Activity:: See above Diet:: See above Discharge Orders Discharge Orders: Discharge Order (Routine); Ordered 09/19/24 Ordered By: Charlotte Lopez DS: Diagnosis Discharge Diagnosis (1) Hyperlipidemia: Status: Chronic (2) Prediabetes: Status: Chronic (3) Hypothyroidism: Status: Chronic (4) Osteopenia: Status: Chronic (5) History of left breast cancer: Status: Chronic (6) Multinodular goiter: (7) Tubular adenoma of colon: (8) Malignant neoplasm of left breast: (9) Diverticula of colon: Status: Acute Asessment and Plan: The patient is seen and examined after their colonoscopy.? The patient has been able to pass gas.? They are not having abdominal pain.? They have been able to tolerate liquids and a snack.? They do not have any nausea or vomiting.? They are not having any chest pain or shortness of breath.??? They are not having any rectal bleeding. Their vital signs have been stable-see nursing notes. We discussed findings during their colonoscopy, and any biopsies that were done/polyps that were removed. The patient will be sent a letter with any biopsy results, and when to repeat the colonoscopy.-see discharge instructions. Patient was given explicit instructions to follow-up regarding colonoscopy-refer to discharge instructions.? We reviewed resumption of medications. Patient verbalized understanding and discharged in stable and satisfactory condition- See nursing notes.
[2024-09-19 08:57] VITALS: BP 101/72; PULSE 78; RESP 16; TEMP 36; O2SAT 96
--- NOTE | 2024-09-19 09:38 | W.ANESPOSTOP ---
Postoperative Evaluation Date, Time and Location Date Performed: 09/19/24 Time Performed: 08:53 Patient Location: Day Surgery Unit Vital Signs Most Recent Imported Vital Signs: Most Recent Vital Signs Temp Pulse Resp BP Pulse Ox 36 C L 78 16 101/72 96 09/19/24 08:57 09/19/24 08:57 09/19/24 08:57 09/19/24 08:57 09/19/24 08:57 Pain Score Most Recent Pain Score: Most Recent Pain Score Pain Level 0 09/19/24 08:57 Assessment Mental Status: Awake (Alert & Oriented to Patient Baseline) Airway and Respiratory Function: Patent airway with normal (patient baseline) respiratory exam Cardiovascular Function: Hemodynamically Stable Hydration Status: Adequately Hydrated Nausea & Vomiting: No Nausea or Vomiting Pain: Pt. Denies Any Pain Peripheral Nerve Block: Patient did not receive a nerve block
--- NOTE | 2024-09-19 09:52 | W.COLOREPORT ---
Date of service: 09/19/24 Time of Service: 09:53 Colonoscopy Report Date of procedure: 09/19/24 Pre-op diagnosis general: Adenomatous polyps Post-op diagnosis procedure note: other (Diverticula) Surgeon: Charlotte Lopez Anesthesia Type: General:No Airway Estimated blood loss (mL): 0 Pathology: none sent Complications: None Disposition: same day Prep: Miralax/Dulcolax Retraction Time: 11 Procedure Description: After informed consent was obtained, explaining risks of the procedure, including but not limits to: bleeding, infections, complications of anesthesia, perforations (which may require antibiotics and /or surgery and stay in the hospital), and abdominal pain/cramping. The patient was taken to the procedure room and placed in a left decubitous position. Monitors were applied and a time out was done. The patients name, date of , procedure, allergies to medications and metal in their body was reviewed. The patient was then sedated. Once sedated and comfortable a rectal exam was done. External exam was normal. Internal exam revealed a normal sphincter tone and no palpable masses. The previously lubricated Olympus scope was then introduced (see RN notes for scope number) and retrofelexed. No internal hemorrhoids were identified. The scope was then advanced to the cecum without difficulty. The TI and appendiceal orifice were identified. The scope was then slowly retracted over 11 minutes back into the rectum. Polyps: No. diverticula: pt had few small mouthed diverticula in the sigmoid colon. There were no signs of active bleeding or infection. The mucosa is pink and healthy w/ a normal vascular pattern. The scope was removed, and the patient was woken up and taken back to Same day surgery in stable condition. The patient tolerated the procedure well and there were no immediate complications. Follow up: The patient does not require any routine screening colonoscopies, unless they develop changes in bowel habits or other new gastrointestinal complaints. [place] Bowel Prep [place] Bowel Prep Right Colon: 3 Left Colon: 3 Transverse Colon: 3 Total Score: 9
== END 2024-09-19 09:25 | disposition home or self-care (01) ==
PROVIDERS: PCP Nurse Practitioner Family; Visit Provider Surgery
PROC: 0DJD8ZZ Inspection of Lower Intestinal Tract, Via Natural or Artificial Opening Endoscopic (ICD-10-PCS; CPT 45378; principal; 2024-09-19 07:30)
DX: Z12.11 Encounter for screening for malignant neoplasm of colon (principal); R73.03 Prediabetes; K57.30 Diverticulosis of large intestine without perforation or abscess without bleeding
CPT/HCPCS: G0105; J1596; J2003; J2371; J2405; J2704

== ENCOUNTER 2025-01-02 09:06 | Outpatient (CLI) | payer MEDICARE, SELFPAY ==
[2025-01-02 09:13] LABS: Abs Immature Grans 0.01 10^3/uL (0.0-0.06); Absolute Basophil Count 0.05 10^3/uL (0.0-0.2); Absolute Eosinophil Count 0.11 10^3/uL (0.0-0.7); Absolute Lymphocyte Count 1.52 10^3/uL (1.2-3.4); Absolute Monocyte Count 0.79 10^3/uL (0.1-0.8); Absolute Neutrophil Count 2.29 10^3/uL (1.2-6.7); Eosinophils % 2.3 %; HCT 41.9 % (36.0-46.0); HGB 13.6 g/dL (11.2-15.7); Immature Grans % 0.2 %; Lymphocytes % 31.9 %; MCH 29.4 pg (27.0-33.0); MCHC 32.5 % (32.0-36.0); MCV 91 fL (80-95); Monocytes % 16.6 %; Platelet Count 308 10^3/uL (130-400); RBC 4.63 10^6/uL (3.93-5.22); RDW 12.4 % (11.7-14.6); RDW-SD 41.2 fL; WBC 4.77 10^3/uL (4.4-10.8)
== END 2025-01-02 09:07 | disposition home or self-care (01) ==
LOC: LBO 09:06
PROVIDERS: Nurse Practitioner Family; PCP Nurse Practitioner Family; Visit Provider Nurse Practitioner Family
DX: R05.3 Chronic cough (principal)
CPT/HCPCS: 36415; 85025

== ENCOUNTER 2025-01-02 09:08 | Outpatient (CLI) | payer MEDICARE, SELFPAY ==
--- NOTE | 2025-01-02 09:20 | DI.RAD_ITS ---
Exam(s) XR CHEST 2V PA LATERAL EXAM: XR CHEST 2V PA LATERAL CLINICAL HISTORY: chronic cough for 5 months R05.3. TECHNIQUE: 2D digital imaging was performed. COMPARISON: CR LEFT RIBS TO INCLUDE CXR from 10/29/2011 FINDINGS: 2 views: Heart size is normal. The mediastinum is not widened. COPD findings but no infiltrates nor pleural effusions. No pulmonary edema. Slight loss of height of T5 vertebral body noted, probably not acute. This appears to been slightly present on x-rays of October 2011. IMPRESSION: No acute pulmonary findings.COPD. DATA REPOSITORY: RADIATION DOSE DELIVERED:
== END 2025-01-02 09:28 ==
PROVIDERS: PCP Nurse Practitioner Family; Visit Provider Nurse Practitioner Family
DX: R05.3 Chronic cough (principal)
CPT/HCPCS: 71046

== ENCOUNTER 2025-01-29 04:06 | Outpatient (CLI) | payer MEDICARE, SELFPAY ==
[2025-01-29] MEDS: Inhaler, Assist Device 1 EACH MC (17:16)
[2025-01-29] MEDS: Levalbuterol HFA 15 GM INH 4 PUFF IH (17:17)
--- NOTE | 2025-02-02 21:22 | W.PFT ---
Date of service: 01/29/25 Time of Service: 15:38 Pulmonary Function Test Result Indications: Cough Interpretation Spirometry: No airflow limitation. No significant bronchodilator response. Lung Volumes: Air trapping present Diffusion Capacity: Normal diffusion Airway Pressure: Increased airways resistance Impression Increased airways resistance and air trapping. Clinical Correlation therefore is recommended.
== END 2025-01-29 04:07 | disposition home or self-care (01) ==
LOC: RT 04:07
PROVIDERS: PCP Nurse Practitioner Family; Visit Provider Student in an Organized Health Care Education/Training Program
DX: R05.3 Chronic cough (principal)
CPT/HCPCS: 94060; 94726; 94729

== ENCOUNTER 2025-05-06 02:24 | Outpatient (CLI) | payer MEDICARE, SELFPAY ==
[2025-05-06 08:30] LABS: Anion Gap 6.5 mmol/L (3-11); BUN 16 mg/dL (7-18); CO2 29.5 mmol/L (21.0-32.0); Calcium 9.1 mg/dL (8.5-10.1); Chloride 104 mmol/L (98-107); Estimated GFR 68.77 (mL/min/1.73m2); Glucose 116 mg/dL (74-106); Potassium 3.9 mmol/L (3.5-5.1); Sodium 140 mmol/L (136-145); TSH (W/Ref FT4) 1.44 uIU/mL (0.36-3.74); Vitamin D 25 Total 28 ng/mL (30-100)
[2025-05-06 22:17] LABS: HIV-1/2 Ag & Ab Screen Negative (Negative)
[2025-05-06 22:29] LABS: HBs Antibody, Quant 3.6 mIU/mL (See Note); Hepatitis B Surface Antigen Negative (Negative)
== END 2025-05-06 02:25 | disposition home or self-care (01) ==
LOC: LBO 02:25
PROVIDERS: PCP Nurse Practitioner Family; Visit Provider Nurse Practitioner Family
DX: Z11.59 Encounter for screening for other viral diseases (principal); E03.9 Hypothyroidism, unspecified; E55.9 Vitamin D deficiency, unspecified; M81.0 Age-related osteoporosis without current pathological fracture; Z11.4 Encounter for screening for human immunodeficiency virus [HIV]
CPT/HCPCS: 36415; 80048; 82306; 86704; 86706; 87340; 87389; 84443